=== PATIENT | female | born 1995 | race Two or more races ===

== ENCOUNTER 2018-06-20 19:37 | Emergency (ER) | payer SELFPAY ==
[~2018-06-20] VITALS: Ht 167.6 cm; Wt 55.0 kg
[2018-06-21] MEDS ORDERED: KETOROLAC 15MG/ML VIAL IM ONE (00:15)
[2018-06-21 01:00] VITALS: BP 110/64
== END 2018-06-21 01:00 | disposition home or self-care (01) ==
LOC: ER 19:37
DX: S62.101A Fracture of unspecified carpal bone, right wrist, initial encounter for closed fracture (principal); F41.9 Anxiety disorder, unspecified; F12.10 Cannabis abuse, uncomplicated; W22.01XA Walked into wall, initial encounter; Y93.89 Activity, other specified; Y92.89 Other specified places as the place of occurrence of the external cause; Y99.8 Other external cause status
CPT/HCPCS: 29125; 73110; 73130; 96372; 99284; J1885; Z7610